=== PATIENT | male | born 1945 | race Caucasian/White ===

== ENCOUNTER 2018-05-29 13:04 | Inpatient (IN) | payer OTHER ==
[~2018-05-29] VITALS: Ht 188 cm; Wt 86.2 kg
[2018-05-29] MEDS ORDERED: LIPITOR40 MG PO (13:19)
[2018-05-29] MEDS ORDERED: NORVASC2.5 M1 PO (13:20)
[2018-05-29] MEDS ORDERED: CLOPIDOGREL BIS75 MG PO (13:20)
[2018-05-29] MEDS ORDERED: LASIX40 MG PO (13:20)
[2018-05-29] MEDS ORDERED: TOPROL XL100 M1 PO (13:20)
[2018-05-29] MEDS ORDERED: ZOLOFT25 MG PO (13:21)
[2018-05-29] MEDS ORDERED: ANDROGEL75 GM TD (13:21)
[2018-05-29] MEDS ORDERED: ALDACTONE50 MG PO (13:21)
[2018-05-29] MEDS ORDERED: TRAZODONE HCL50 MG PO (13:22)
[2018-05-29] MEDS ORDERED: ASPIR 8181 MG PO (13:22)
--- NOTE | 2018-05-29 13:23 | NUR ---
SE RECIBE PTE ALERTA Y ORIENTADO EN TIEMPO, LUGAR Y PERSONA EN AMBULANCIA. PTE CON CANALIZACION EN PERIFERAL DERECHA DE AIYANA, PATENTE Y SE MANTIENE LINEA SERRADA. PTE REFIERE DOLOR ABDOMINAL. SE YUMIKO S/V LOS CUALES SE PRESENTAN A DARVIN. MARIAA QUIEN ORDENA UBICAR PTE EN AREA DE OBSERVACION K6.
--- NOTE | 2018-05-29 14:54 | NUR ---
SE ORIENTA PTE SOBRE TRATAMIENTO. SE YUMIKO MUESTRAS DE YAZMIN YAW ORDENADO POR KAUSHAL RAYMOND. SE NOTIFICA A PERSONAL DE SONO PARA ESTUDIO PENDIENTE. PTE PENDIENTE A RE-EVALUACION POR DRA. LEROY.
--- NOTE | 2018-05-29 16:33 | NUR ---
SE ORIENTA EL PACIENTE SOBRE EL TX. REFIERE ENTENDER SE REPITEN MUESTRAS DE YAZMIN BAJO MEDIDAS ASEPTICAS SE ROTULAN Y ENVIAN AL LABORATORIO. SE ADMINISTRAN MEDICAMENTOS YAW ORDEN MEDICA.
--- NOTE | 2018-05-29 17:00 | NUR ---
PTE RE EVALUADO POR EL DR. Herrmann ANGEL QUIEN ORDENA [place]. NUEVO Y COLOCA CONSULTA CON MEDICINA INTERNA. SE ADMINISTRA MEDICAMENTO YAW ORDEN MEDICA.
== END 2018-06-01 14:18 | disposition home or self-care (01) | DRG 683 ==
LOC: ER 13:04 → MEDI 20:08 → ICU-2 20:08 → SEC-K 20:08 → MEDI 05-30 20:41
PROVIDERS: ADMIT Specialist
PROC: BW40ZZZ Ultrasonography of Abdomen (ICD-10-PCS; principal; 2018-05-29)
PROC: 3E0F7GC Introduction of Other Therapeutic Substance into Respiratory Tract, Via Natural or Artificial Opening (ICD-10-PCS; 2018-05-29)
PROC: 4A12X4Z Monitoring of Cardiac Electrical Activity, External Approach (ICD-10-PCS; 2018-05-30)
PROC: 4A033R1 Measurement of Arterial Saturation, Peripheral, Percutaneous Approach (ICD-10-PCS; 2018-05-31)
DX: I12.9 Hypertensive chronic kidney disease with stage 1 through stage 4 chronic kidney disease, or unspecified chronic kidney disease (principal); N17.9 Acute kidney failure, unspecified; J98.11 Atelectasis; E11.22 Type 2 diabetes mellitus with diabetic chronic kidney disease; E87.5 Hyperkalemia; E86.0 Dehydration; Z79.4 Long term (current) use of insulin; I11.9 Hypertensive heart disease without heart failure; E11.40 Type 2 diabetes mellitus with diabetic neuropathy, unspecified; E78.49 Other hyperlipidemia; E11.65 Type 2 diabetes mellitus with hyperglycemia; N18.2 Chronic kidney disease, stage 2 (mild); G47.33 Obstructive sleep apnea (adult) (pediatric); F17.210 Nicotine dependence, cigarettes, uncomplicated